=== PATIENT | female | born 1995 | race Caucasian/White ===

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

== ENCOUNTER 2017-05-14 01:56 | Emergency (ER) | payer BC ==
[2017-05-14] MEDS ORDERED: Ketorolac INJ* 30 MG/ML 1 ML VIAL IV ONE (03:12)
[2017-05-14] MEDS ORDERED: Ondansetron INJ* 2 MG/ML VIAL IV ONE (03:12)
[2017-05-14] MEDS ORDERED: NS 0.9% 1000 ML* 1,000 ML IV ONE (03:12)
[2017-05-14 03:41] LABS: ABS Basophils 0.1 10^3/ul (0-0.2); ABS Eosinophils 0.2 10^3/ul (0-0.6); ABS Monocytes 1.1 10^3/ul (0-0.8); ABS Neutrophils 8.3 10^3/ul (1.5-7.7); ABS Nucleated RBC 0 10^3/ul; Eosinophil % 2.1 % (0-6); Hematocrit 38 % (35-47); Hemoglobin 12.9 g/dl (12.0-16.0); Lymphocyte % 16.7 % (25-47); Mean Corpuscular HGB Conc 34 g/dl (31-36); Mean Corpuscular Hemoglobin 28 pg (27-31); Mean Corpuscular Volume 83 fL (80-97); Mean Platelet Volume 8.2 um3 (7.4-10.4); Nucleated Red Blood Cells % 0; Platelet Count 277 10^3/ul (150-450); Red Blood Count 4.58 10^6/ul (4.0-5.4); Red Cell Distribution Width 14 % (10.5-15); White Blood Count 11.7 10^3/ul (3.5-10.8)
[2017-05-14 05:08] VITALS: BP 106/72
[2017-05-14 05:15] LABS: Urine Appearance Clear; Urine Blood Negative (Negative); Urine Color Yellow; Urine Ketones Negative (Negative); Urine Protein Negative (Negative); Urine Specific Gravity 1.018 (1.010-1.030); Urine Urobilinogen Negative (Negative)
--- NOTE | 2017-05-14 17:34 | ED ---
Kareem Reyes Stephanie, scribed for Garrick Moon MD on 05/14/17 at 0317 . Abdominal Pain/Female - HPI Summary HPI Summary: The pt is a 21 y/o F presenting to the ED with c/o abd pain that began at 01:58 today. The pain radiates into her back. Symptoms include vomiting. She states it feels like someone is "pulling my bones apart". The pt denies dysuria. Pt states pain located in her entire abdomen. Pt denies any aggravating factors. Pt denies any F/C, dysuria, diarrhea, or new food or medication exposures. - History of Current Complaint Chief Complaint: EDBackInjuryPain Stated Complaint: BACK PAIN Time Seen by Provider: 05/14/17 02:39 Hx Obtained From: Patient ?: No Onset/Duration: Sudden Onset, Lasting Hours - 2, Still Present Severity Currently: Severe Pain Intensity: 9 Pain Scale Used: 0-10 Numeric Location: Diffuse Radiates: Yes Radiates to: Back Aggravating Factor(s): Nothing Alleviating Factor(s): Nothing Associated Signs and Symptoms: Positive: Vomiting, Other: - Negative: dysuria Allergies/Adverse Reactions: Allergies Allergy/AdvReac Type Severity Reaction Status Date / Time bee venom protein (honey bee) Allergy Anaphylatic Verified 05/14/17 02:00 Shock benzoyl peroxide Allergy Hives Verified 05/14/17 02:00 cetirizine [From Zyrtec] Allergy Hives Verified 05/14/17 02:01 Sulfa (Sulfonamide Allergy Hives Verified 05/14/17 02:01 Antibiotics) PMH/Surg Hx/FS Hx/Imm Hx Endocrine/Hematology History: Denies: Hx Anticoagulant Therapy, Hx Diabetes Cardiovascular History: Denies: Hx Hypertension, Hx Pacemaker/ICD Respiratory History: Reports: Hx Asthma Denies: Hx Chronic Obstructive Pulmonary Disease (COPD) History: Denies: Hx Renal Disease Musculoskeletal History: Denies: Hx Arthritis, Hx Osteoporosis Sensory History: Denies: Hx Contacts or Glasses, Hx Hearing Aid Opthamlomology History: Denies: Hx Contacts or Glasses Neurological History: Reports: Hx Migraine - usually takes meds Psychiatric History: Reports: Hx Anxiety, Hx Panic Disorder - VERY BAD ANXIETY- DOES NOT LIKE NEEDLES - Surgical History Surgery Procedure, Year, and Place: 5X TUBES CHILD. - Immunization History Date of Tetanus Vaccine: utd Date of Influenza Vaccine: fall 2016 Infectious Disease History: No Infectious Disease History: Denies: Traveled Outside the [place] in Last 30 Days - Family History Known Family History: Negative: Cardiac Disease - Social History Occupation: Unemployed Lives: With Family Alcohol Use: None Hx Substance Use: No Substance Use Type: Reports: None Hx Tobacco Use: No Smoking Status (MU): Never Smoked Tobacco Have You Smoked in the Last Year: No Review of Systems Negative: Fever Positive: Abdominal Pain, Vomiting Negative: dysuria All Other Systems Reviewed And Are Negative: Yes Physical Exam - Summary Physical Exam Summary: Appearance: Well-appearing, no distress, Well-nourished Skin: Warm, color reflects adequate perfusion Head: Normal Head/Face inspection Eyes: Conjunctiva clear ENT: Normal inspection Neck: Supple, no nodes, no JVD. Respiratory: Lungs clear, Normal breath sounds, no respiratory distress Cardio: RRR, No murmur, pulses normal, brisk capillary refill Abdomen: soft, mild diffuse abd tenderness, no McBurney's point tenderness, no guarding, no CVA tenderness Bowel sounds: present Musculoskeletal: Strength Intact/ ROM intact. No calf tenderness. No edema. Neuro: Alert, muscle tone normal, facial symmetry, speech normal, sensory/motor intact Psychological: Normal Triage Information Reviewed: Yes Vital Signs On Initial Exam: Initial Vitals Temp Pulse Resp BP Pulse Ox 97.1 F 98 16 131/85 99 05/14/17 01:58 05/14/17 01:58 05/14/17 01:58 05/14/17 01:58 05/14/17 01:58 Vital Signs Reviewed: Yes Diagnostics - Vital Signs Vital Signs Temp Pulse Resp BP Pulse Ox 05/14/17 01:58 97.1 F 98 16 131/85 99 - Laboratory Lab Results: Lab Results 05/14/17 05/14/17 Range/Units 03:25 03:25 WBC 11.7 H (3.5-10.8) 10^3/ul RBC 4.58 (4.0-5.4) 10^6/ul Hgb 12.9 (12.0-16.0) g/dl Hct 38 (35-47) % MCV 83 (80-97) fL MCH 28 (27-31) pg MCHC 34 (31-36) g/dl RDW 14 (10.5-15) % Plt Count 277 (150-450) 10^3/ul MPV 8.2 (7.4-10.4) um3 Neut % (Auto) 71.1 (38-83) % Lymph % (Auto) 16.7 L (25-47) % [place] % (Auto) 9.5 H (0-7) % Eos % (Auto) 2.1 (0-6) % Baso % (Auto) 0.6 (0-2) % Absolute Neuts (auto) 8.3 H (1.5-7.7) 10^3/ul Absolute Lymphs (auto) 2.0 (1.0-4.8) 10^3/ul Absolute Monos (auto) 1.1 H (0-0.8) 10^3/ul Absolute Eos (auto) 0.2 (0-0.6) 10^3/ul Absolute Basos (auto) 0.1 (0-0.2) 10^3/ul Absolute Nucleated RBC 0 10^3/ul Nucleated RBC % 0 Sodium 135 (133-145) mmol/L Potassium 3.8 (3.5-5.0) mmol/L Chloride 102 (101-111) mmol/L Carbon Dioxide 26 (22-32) mmol/L Anion Gap 7 (2-11) mmol/L BUN 17 (6-24) mg/dL Creatinine 0.62 (0.51-0.95) mg/dL Est GFR ( Amer) 159.5 (>60) Est GFR (Non-Af Amer) 124.0 (>60) BUN/Creatinine Ratio 27.4 H (8-20) Glucose 114 H (70-100) mg/dL Calcium 9.4 (8.6-10.3) mg/dL Total Bilirubin 0.60 (0.2-1.0) mg/dL AST 156 H (13-39) U/L ALT 143 H (7-52) U/L Alkaline Phosphatase 218 H (34-104) U/L Total Protein 6.6 (6.4-8.9) g/dL Albumin 3.9 (3.2-5.2) g/dL Globulin 2.7 (2-4) g/dL Albumin/Globulin Ratio 1.4 (1-3) Lipase 24 (11.0-82.0) U/L Result Diagrams: 05/14/17 03:25 05/14/17 03:25 Lab Statement: Any lab studies that have been ordered have been reviewed, and results considered in the medical decision making process. Re-Evaluation - Re-Evaluation First Eval Re-Evaluation Time: 04:53 Change: Improved Comment: Pt states her abdominal pain has completely resolved. pt refusing any further testing or imaging at this time. Abdominal Pain Fem Course/Dx - Course Course Of Treatment: pt with acute onset abdominal pain with spontaneous resolution. Pt refusing further evaluation. Pt advised to return if symptoms worsen or return. - Diagnoses Differential Diagnosis: Positive: Bowel Obstruction, Constipation, Gall Bladder Disease, Irritable Bowel Syndrome, Ovarian Cyst, Pelvic Inflammatory Disease, Renal Colic, Urinary Tract Infection Provider Diagnoses: Abdominal pain Discharge - Sign-Out/Discharge Documenting (check all that apply): Discharge - Discharge Plan Condition: Improved Disposition: HOME Patient Education Materials: Abdominal Pain (ED) Referrals: No Primary Care Phys,NOPCP [Primary Care Provider] - 2 Days Additional Instructions: Please follow up with your PCP in 2-3 days for further evaluation. Please return to this Emergency Department if symptoms return. - Billing Disposition and Condition Condition: IMPROVED Disposition: HOME The documentation as recorded by the Kareem doss Stephanie accurately reflects the service I personally performed and the decisions made by , Garrick Moon MD.
== END 2017-05-14 05:05 | disposition home or self-care (01) ==
LOC: ED 01:56
DX: R10.84 Generalized abdominal pain (principal); M54.9 Dorsalgia, unspecified; R11.10 Vomiting, unspecified; J45.909 Unspecified asthma, uncomplicated; G43.909 Migraine, unspecified, not intractable, without status migrainosus; F41.0 Panic disorder [episodic paroxysmal anxiety]; Z88.2 Allergy status to sulfonamides; Z91.030 Bee allergy status
CPT/HCPCS: 36415; 80053; 81003; 83690; 85025; 99282; J1885; J2405

== ENCOUNTER 2017-06-30 09:07 | Day surgery (SDC) | payer BC ==
--- NOTE | 2017-06-29 15:08 | HP ---
AMENDED REPORT NOW INCLUDES COSIGNER DESIGNATION - ESIGNED BEFORE ADJUSTMENT CC: Laura Mariscal NP * PREOPERATIVE HISTORY AND PHYSICAL: DATE OF ADMISSION/SURGERY: 06/30/17 This patient is scheduled for same-day surgery admission by Dr. Casanova tomorrow, 06/30/17. DATE OF EXAMINATION: 06/29/17 ATTENDING SURGEON: Dr. Dejuan Casanova * (dictated by Dedra Carvalho NP). CHIEF COMPLAINT: Symptomatic cholelithiasis. HISTORY OF PRESENT ILLNESS: The patient is a 21-year-old female evaluated by Dr. Casanova for possible gallbladder disease. She describes a month of intermittent abdominal pain and decreased appetite. She presented to the emergency room in April 2017 with severe right upper quadrant abdominal pain radiating to her back. She denied fever or chills, but she did have multiple episodes of vomiting. In the emergency room, her labs revealed elevated AST and ALT, bilirubin and lipase were within normal limits. She followed up with her primary care provider, who sent her for an ultrasound as well as repeat labs. The ultrasound was consistent with gallstones and on the second set of labs, the LFTs remained elevated. She states that last evening around 7 p.m., she had another gallbladder attack associated with right upper quadrant abdominal pain. No nausea or vomiting. She noticed that her urine was slightly darker than usual and she drank a lot of water and she states today that she has minimal abdominal pain and her urine has a more normal color; she had a loose bowel movement that was of normal color. She denies any dysuria. She is scheduled for laparoscopic cholecystectomy by Dr. Casanova tomorrow; Dr. Casanova described the nature of the surgical procedure, the relevant risks and benefits, and today I reviewed the expected postoperative care and recovery. The patient has had a chance to ask questions and stated that she understands the information and is satisfied with the answers given to her questions. She will sign surgical consent on the day of surgery. PAST MEDICAL HISTORY: Asthma, preeclampsia, and depression. PAST SURGICAL HISTORY: section in November 2016; she has had 5 sets of ear tubes. OB HISTORY: 1, para 1. She is up-to-date with pelvic exam and Pap smear. She is on day 1 of her menstrual period at this time. MEDICATIONS: 1. Tri-Estarylla oral contraceptive 1 tablet daily. 2. Albuterol inhaler p.r.n. ALLERGIES: BEE STINGS cause anaphylaxis, SULFA ANTIBIOTICS cause hives, and ZYRTEC causes rash. FAMILY HISTORY: Brother had gallbladder removed at age 27. Maternal grandmother had gallbladder removed. No known anesthesia complications, bleeding tendencies or clotting disorders in the family. 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 She has never been a smoker. She denies the use of alcohol or other substances. REVIEW OF SYSTEMS: Constitutional: No fevers, chills, excessive fatigue, or weight loss. Endocrine: No diabetes or thyroid disease. Hematologic: No easy bruising or bleeding. She has never received a blood transfusion. Respiratory: No dyspnea on exertion. No chronic cough. No recent asthma flare- ups. In early May, she was treated for upper respiratory infection and a sinus infection. Cardiovascular: No anginal chest pain or palpitations. Gastrointestinal: As described in history of present illness. Negative for GI bleeding or constipation. Negative for heartburn. Genitourinary: No dysuria. Musculoskeletal: Normal. No joint or back pain. Integumentary: Normal. Negative for rashes or ulcerations or skin changes. Neurologic: Normal. Negative for headache or blurred vision. General: Negative for deep vein thrombosis or pulmonary embolism. Negative for previous anesthesia complications. PHYSICAL EXAMINATION GENERAL SURVEY: The patient is a 21-year-old female, overweight, well developed , in no acute distress. VITAL SIGNS: Height 61 inches, weight 164 pounds, body mass index 31. Blood pressure 120/80, pulse 76 and regular, respiratory rate 16, temperature 99 tympanic. HEENT: Anicteric sclerae. NECK: Supple. No cervical lymphadenopathy. LUNGS: Breath sounds bilaterally clear and equal. HEART: Regular rate and rhythm. No murmurs or rubs appreciated. BACK: No CVA tenderness. ABDOMEN: Active bowel sounds. Soft and nondistended. Mildly tender in the epigastrium and right upper quadrant. Negative Lombardi's sign. No guarding or rebound tenderness. No obvious ventral hernias. Well-healed Pfannenstiel incision. No obvious incisional hernia. PELVIC: Exam deferred. RECTAL: Exam deferred. EXTREMITIES: Warm without edema or skin ulceration. NEUROLOGIC: Alert and oriented x3. Steady gait. SKIN: Warm, dry, anicteric. IMPRESSION: Symptomatic cholelithiasis. PLAN: Same-day surgery admission to Dr. Casanova's service on 06/30/17 , for a laparoscopic cholecystectomy. SAUNDRA CARVALHO, DRAFTER LANDSCAPE [id number]/[facility] #: [id number] [facility]
[~2017-06-30 09:07] MED LIST changes: -Albuterol 2.5 MG/3 ML NEB.SOL* (0.083%) INH ONE; +Buffered Lidocaine 0.9% SYRIN* 5 ML/SYR SYRINGE INTRADERM ONE; +Famotidine TAB* 20 MG PO ONE; +Metoclopramide TAB* 10 MG PO ONE; -NS 0.9% 1000 ML* 1,000 ML IV ONE
[2017-06-30] MEDS ORDERED: Famotidine TAB* 20 MG ONE (09:34)
[2017-06-30] MEDS ORDERED: Metoclopramide TAB* 10 MG ONE (09:34)
[2017-06-30] MEDS ORDERED: ceFAZolin 2 GM PREMIX (*) 2 GM/50 ML BAG IVPB ONE (09:34)
[2017-06-30] MEDS ORDERED: Bupivacaine 0.25% SDV* 30 ML ONE (10:21)
[2017-06-30] MEDS ORDERED: Midazolam* 1 MG/ML 5 ML VIAL (5 MG) ONE (10:22)
[2017-06-30] MEDS ORDERED: Lidocaine 2% PF * 5 ML VIAL ONE (10:22)
[2017-06-30] MEDS ORDERED: Ketorolac INJ* 30 MG/ML 1 ML VIAL ONE (10:22)
[2017-06-30] MEDS ORDERED: fentaNYL* 50 MCG/ML 2 ML VIAL (100 MCG VIAL) ONE ×3 (10:22→13:26)
[2017-06-30] MEDS ORDERED: Propofol* 10 MG/ML 20 ML BTL IV PUSH ONE (10:22)
[2017-06-30] MEDS ORDERED: Dexamethasone IV* 4 MG/ML 1 ML (4 MG) ONE (10:22)
[2017-06-30] MEDS ORDERED: Cisatracurium* 2 MG/ML MDV 5 ML ONE (10:22)
[2017-06-30 10:40] LABS: EGFR Non-African American 121.7 (>60)
[2017-06-30] MEDS ORDERED: EPHEDrine (Pressors)* 50 MG/ML VIAL ONE (12:15)
[2017-06-30] MEDS ORDERED: oxyCODONE/Acetamin 5/325 MG* TAB PO PRN (12:16)
[2017-06-30] MEDS ORDERED: PROCHLORPERAZINE INJ 5 MG/ML 2 ML VIAL IV PRN (12:16)
[2017-06-30] MEDS ORDERED: Naloxone* 0.4 MG/ML 1 ML VIAL IV PRN (12:16)
[2017-06-30] MEDS ORDERED: Ondansetron ODT TAB* 4 MG PO PRN (12:16)
[2017-06-30] MEDS ORDERED: DiMENhydriNATE IV* 50 MG/ML VIAL ONE (12:19)
[2017-06-30] MEDS ORDERED: Neostigmine Methylsulfate* 1 MG/ML 10 ML VIAL (1 mg/ml) ONE (12:22)
[2017-06-30] MEDS ORDERED: Glycopyrrolate IV* 0.2 MG/ML 1 ML VIAL ONE (12:22)
--- NOTE | 2017-06-30 12:44 | OP ---
Operative Report - Blank - Operative Report Date of Operation: 06/30/17 Note: Preop Dx: symptomatic cholelithiasis Postop Dx: same Procedure: laparoscopic cholecystectomy Anesthesia: GET Surgeon: Jocelyne Asst: JR Rose; JESSICA Sheldon Fluids: 1800 ml RL EBL: < 20 ml Drains: none Specimen: GB Findings: dictated
[2017-06-30] MEDS ORDERED: Acetaminophen TAB* 325 MG PO PRN (12:47)
[2017-06-30] MEDS ORDERED: Ondansetron INJ* 2 MG/ML VIAL ONE (12:48)
[2017-06-30] MEDS: fentaNYL* 50 MCG/ML 2 ML VIAL (100 MCG VIAL) IV PRN ×3 (12:56→13:28)
[2017-06-30] MEDS ORDERED: oxyCODONE/Acetamin 5/325 MG* TAB ONE ×2 (13:26→13:53)
[2017-06-30] MEDS ORDERED: Ondansetron ODT TAB* 4 MG ONE (13:48)
[2017-06-30 15:02] VITALS: BP 101/80
--- NOTE | 2017-07-02 07:22 | OP ---
CC: Laura Mariscal NP; [facility] * DATE OF OPERATION: 06/30/17 DATE OF : 89 SURGEON: Dejuan Casanova MD EMPLOYMENT ADJUDICATOR: JR Pandya ANESTHESIA: General anesthesia. PRE-OP DIAGNOSIS: Symptomatic cholelithiasis. POST-OP DIAGNOSIS: Symptomatic cholelithiasis. OPERATIVE PROCEDURE: Laparoscopic cholecystectomy. ESTIMATED BLOOD LOSS: Minimal blood loss. FLUIDS: 1800 cc of crystalloid fluid given. DRAINS: None. SPECIMEN: Gallbladder. DESCRIPTION OF PROCEDURE: The patient was identified in the preoperative area, marked, consent was signed. She was brought to the operating room, placed in the operating room table in a supine position. Preoperative antibiotics were given. Sequential devices were placed on bilateral lower extremities. General anesthesia was induced. The patient's abdomen was prepped and draped in the standard surgical fashion and a time-out was performed. Folds of the umbilicus were elevated anteriorly and a Veress needle was inserted into the abdominal cavity, which was then allowed to insufflate to a pressure of 15 mmHg. The patient tolerated the insufflation well. A periumbilical incision was made and a 5 mm trocar was inserted through this. There was no evidence of injury from the trocar insertion or from the Veress needle, which was then removed. Attention was turned towards the right upper quadrant. Additional trocars were placed in the following positions; a 12 mm in the subxiphoid area and two 5-mm along the right costal margin. Table was repositioned. Fundus of the gallbladder was identified. This was grasped and retracted over the liver. Infundibulum was grasped and retracted towards the right lower quadrant. This exposed triangle of [place]ot. There were no significant adhesions or disease at the gallbladder. Next, the peritoneum of the lateral aspect of the gallbladder was taken as well as the medial aspect. The cystic duct was isolated as well as the cystic artery. Cystic duct was clipped and ligated. Cystic artery was doubly clipped and ligated. The gallbladder was removed from the liver bed and placed in an endoscopic retrieval bag and brought out through the subxiphoid port site. Review of the abdomen showed enlarged spleen and liver, but no discrete lesions. Cecum appeared intact. There was no evidence of abdominal hernias. The abdomen was allowed to collapse. Trocars were removed under direct vision and all four skin incisions were reapproximated with 4-0 Monocryl subcuticular sutures followed by Steri-Strips and sterile dressings. The patient tolerated the procedure well, was woken up in the OR and transferred to the PACU in stable condition. [id number] #: [id number] MTDD
== END 2017-06-30 15:03 | disposition home or self-care (01) ==
LOC: OR 09:07
PROVIDERS: ATTEND Surgery
DX: K80.10 Calculus of gallbladder with chronic cholecystitis without obstruction (principal); J45.909 Unspecified asthma, uncomplicated; F41.8 Other specified anxiety disorders
CPT/HCPCS: 36415; 80053; 81025; 88304; A9270-GY; J0690; J1100; J1240; J1885; J2250; J2405; J2704; J2710; J3010

== ENCOUNTER 2020-07-29 05:54 | Inpatient (IN) ==
[2020-07-29] MEDS ORDERED: ceFOXitin 2 GM PREMIX 50 ML IVPB ONE (06:30)
[2020-07-29 06:53] LABS: Urine Appearance Clear; Urine Bilirubin Negative (Negative); Urine Blood Negative (Negative); Urine Color Straw; Urine Glucose Negative (Negative); Urine Ketones Negative (Negative); Urine Nitrite Negative (Negative); Urine Protein Negative (Negative); Urine Specific Gravity 1.006 (1.002-1.030); Urine Urobilinogen Negative (Negative)
[2020-07-29] MEDS ORDERED: Morphine PF AMP (0.5MG/ML) 5 MG/10 ML AMP ONE (07:43)
[2020-07-29] MEDS ORDERED: fentaNYL 100 mcg/2 ml 50 MCG/ML VIAL ONE (07:43)
[2020-07-29] MEDS ORDERED: Midazolam 2 mg/2 ml VIAL 1 mg/ml 2 ml VIAL (2 mg) ONE (07:49)
[2020-07-29] MEDS ORDERED: Phenylephrine 40 mcg/mL 10mL (400mcg) SYRINGE ONE (08:10)
[2020-07-29] MEDS ORDERED: Oxytocin 10 UNITS/ML 1 ML VIAL ONE (08:16)
[2020-07-29] MEDS ORDERED: Ondansetron 4 mg VIAL 2 MG/ML 2 ml VIAL IV PRN (08:25)
[2020-07-29] MEDS ORDERED: Naloxone 0.4 mg VIAL 0.4 mg/ml 1 ml VIAL IV PRN ×2 (08:25→08:46)
[2020-07-29] MEDS ORDERED: EPHEDrine (Pressors) 50 MG/ML VIAL ONE (08:34)
[2020-07-29] MEDS ORDERED: diPHENhydraMINE IV 50 MG/ML 1 ml VIAL (BENADRYL) IV PRN (08:46)
[2020-07-29] MEDS ORDERED: Witch Hazel PAD JAR TOPICAL PRN (09:11)
[2020-07-29] MEDS ORDERED: Tetan/Diph/Pertus SYR(Tdap) 0.5 ML SYR(BOOSTRIX) use SYR contains LATEX IM ONE (09:11)
[2020-07-29] MEDS ORDERED: Dibucaine 1% OINT 28.35 GM TUBE PR PRN (09:11)
[2020-07-29] MEDS ORDERED: Glycerin ADULT 2.4 gm SUPP PR PRN (09:11)
[2020-07-29] MEDS ORDERED: Lactated Ringers 1000 ml BAG 1,000 ML IV SCH (10:00)
[2020-07-29] MEDS ORDERED: Oxytocin in LR 20 UNITS/1,000 ML BAG IVPB SCH (10:00)
[2020-07-29 10:32] LABS: Urine Appearance Clear; Urine Bilirubin Negative (Negative); Urine Blood Negative (Negative); Urine Color Straw; Urine Glucose Negative (Negative); Urine Ketones Negative (Negative); Urine Nitrite Negative (Negative); Urine Protein Negative (Negative); Urine Specific Gravity 1.003 (1.002-1.030); Urine Urobilinogen Negative (Negative)
[2020-07-29 10:44] LABS: Urine Benzodiazepine Screen None Detected (None Detect); Urine Opiates Screen None Detected (None Detect)
[2020-07-30 08:35] LABS: ABS Basophils 0.1 10^3/ul (0-0.2); ABS Eosinophils 0.1 10^3/ul (0-0.6); ABS Lymphocytes 1.3 10^3/ul (1.0-4.8); ABS Monocytes 0.9 10^3/ul (0-0.8); ABS Neutrophils 9.2 10^3/ul (1.5-7.7); Eosinophil % 1.1 %; Hematocrit 32 % (35-47); Lymphocyte % 11.6 %; Mean Corpuscular HGB Conc 34 g/dL (31-36); Mean Corpuscular Hemoglobin 30 pg (27-31); Mean Corpuscular Volume 88 fL (80-97); Mean Platelet Volume 9.3 fL (7.4-10.4); Platelet Count 201 10^3/uL (150-450); Red Blood Count 3.66 10^6 /uL (3.70-4.87); Red Cell Distribution Width 13 % (10-15); White Blood Count 11.6 10^3/uL (3.5-10.8)
[2020-07-31 08:10] VITALS: BP 108/64
== END 2020-07-31 11:49 | disposition home or self-care (01) ==
LOC: MCHOB 05:54
PROVIDERS: ADMIT Obstetrics & Gynecology; ATTEND Obstetrics & Gynecology